=== PATIENT | female | born 1995 | race Hispanic/Latino ===

== ENCOUNTER 2018-06-20 21:16 | Emergency (ER) | payer SELFPAY ==
[2018-06-20 21:38] LABS: Bilirubin Negative (Negative); Blood, Urine Negative (Negative); Clarity CLOUDY (Clear); Glucose, Urine (Dipstick) Negative (Negative); Leukocyte Small (Negative); Nitrite Positive (Negative); Protein, Urine (Dipstick) Trace mg/dL (Neg-Trace); Specific Gravity, Urine 1.019 (1.002-1.036); pH, Urine 6.5 (5.0-9.0)
[2018-06-20 21:39] LABS: Pregnancy Test - Urine (BHCG) Negative (Negative); Pregu Control Background? CLEAR/WHITE (CLR/WHITE); Pregu Control Bar Appear? YES (CONTROL BAR); Specific Gravity 1.019 (1.002-1.036)
[2018-06-20 21:40] LABS: Bacteria/HPF 4+ HPF (None Seen); Pathc Cast-AUWi Flag 1.74 (0-2.49); WBC/HPF 21-50 HPF (0-3)
[2018-06-20 21:41] LABS: Hyaline Casts/LPF 0-3 HYALINE CAST LPF (0-3 Hyaline)
[2018-06-20 21:44] LABS: Hemoglobin 11.6 g/dL (12.0-16.0); Mean Corpuscular HGB CONC 31.5 g/dL (32.0-36.0); Mean Corpuscular Hemoglobin 23.7 pg (27.0-31.0); Mean Corpuscular Volume 75.3 fL (78.0-98.0); Mean Platelet Volume 7.4 fL (7.4-10.4); Platelet Count 285 thou/uL (130-400); RBC Distribution Width 14.7 % (11.5-14.5); Red Blood Cell (RBC) Count 4.88 mill/uL (4.20-5.40); White Blood Cell (WBC) Count 7.9 thou/uL (4.8-10.8)
[2018-06-20 22:04] LABS: ALT (SGPT) 53 U/L (8-55); AST (SGOT) 49 U/L (5-34); Albumin 3.9 g/dL (3.5-5.0); Alkaline Phosphatase 104 U/L (40-150); Anion Gap 13 mmol/L (10-20); BUN (Urea Nitrogen) 6 mg/dL (7.0-18.7); Bilirubin, Total 0.5 mg/dL (0.2-1.2); Calc. Creatinine Clearance 0 mL/min (70-130); Calcium 8.6 mg/dL (7.8-10.44); Carbon Dioxide 24 mmol/L (22-29); Chloride 104 mmol/L (98-107); Estimated GFR-MDRD 81; Globulin 3.3 g/dL (2.4-3.5); Glucose 111 mg/dL (70-105); Lipase 27 U/L (8-78); Potassium 3.9 mmol/L (3.5-5.1); Protein, Total 7.2 g/dL (6.0-8.3); Sodium 137 mmol/L (136-145)
[2018-06-20 22:06] LABS: Band 15 % (5-11); Lymphocytes 33 % (21-51); MDiff Complete? YES; Monocytes 7 % (0-10); Neutrophil 45 % (42-75)
[2018-06-20] MEDS ORDERED: Ibuprofen 200 MG TAB ONE (22:42)
[2018-06-20] MEDS ORDERED: Ondansetron PF 4 MG/2 ML Vial ONE (22:42)
[2018-06-20] MEDS ORDERED: cefTRIAXone\\ROCEPHIN 1 GM VIAL ONE ×2 (23:37→23:38)
== END 2018-06-21 00:30 | disposition home or self-care (01) ==
LOC: ERS 21:16
DX: N12 Tubulo-interstitial nephritis, not specified as acute or chronic (principal); F41.9 Anxiety disorder, unspecified; F17.210 Nicotine dependence, cigarettes, uncomplicated
CPT/HCPCS: 36415; 80053; 81003; 81015; 81025; 83690; 85025; 87077; 87086; 87186; 96361; 96365; 96375; J0696; J2405

== ENCOUNTER 2018-08-01 16:45 | Emergency (ER) | payer SELFPAY ==
--- NOTE | 2018-08-01 17:29 | RAD ---
LEFT RING FINGER THREE VIEWS: 08/01/2018 HISTORY: Injury. Trauma. Pain. COMPARISON: None. FINDINGS: No displaced fracture or evidence of dislocation noted. IMPRESSION: No acute findings. POS: DIPTI
== END 2018-08-01 18:54 | disposition home or self-care (01) ==
LOC: ERS 16:45
DX: S63.615A Unspecified sprain of left ring finger, initial encounter (principal); F41.9 Anxiety disorder, unspecified; F17.210 Nicotine dependence, cigarettes, uncomplicated; W19.XXXA Unspecified fall, initial encounter

== ENCOUNTER 2019-05-13 00:57 | Day surgery (SDC) | payer OTHER ==
[2019-05-13 01:31] VITALS: BP 113/72; TEMP 98.7; BMI 44.9
--- NOTE | 2019-05-13 02:04 | PDOC.FPROB ---
FMR OB H&P: HPI - History of Present Illness Chief Complaint: Abdominal pain History of Present Illness: Patient is a 24 yo female who presents to L&D triage with complaint of abdominal pain. She states that at approx. 1330 on 05/12/19 her niece (weight about 30 pounds) jumped on top of her and "knee'ed" her in the upper mid abdomen. Patient instantly felt a sharp pain which then improved after a short period of time. She last felt baby move around 1400 that day. She then took her children to a [facility] and walked around most of the afternoon, returning home around 12AM. Around that time she started to have increasing abdominal pain in the same area where her niece landed on her abdomen and radiating down her abdomen. She points to a location in mid-abdomen above the umbilicus when asks where pain is. Patient denies any loss of fluid or vaginal bleeding. She states she only had 1 glass of water in last 12 hours. She was somewhat dizzy on the drive to the hospital today. Primary Care Physician: Dr. Mckenzie FMR OB H&P: Current - Care : 3 Para: 2 Gestational age: 20.0 weeks Due date: 09/30/2019 Course/Complications: Anemia, currently taking Iron replacement therapy Last U/S on 05/03/19, was told had normal results Next appointment with Dr. Mckenzie on 05/28/19. FMR OB H&P: History - Past Medical History PMH: Anemia - OB History OB History: 2 prior vaginal deliveries, no complications at delivery 2nd occurred while patient had IUD in place, IUD was removed before delivery - Social History Social History: Denies tobacco use. FMR OB H&P: Medications - Current Home Medications: Medication Instructions Recorded Confirmed Type Vitamin 1 tab PO DAILY 05/13/19 05/13/19 History Allergies/Adverse Reactions: Allergies Allergy/AdvReac Type Severity Reaction Status Date / Time No Known Allergies Allergy Verified 05/13/19 02:08 FMR OB H&P: ROS - Review of Systems General: denies: fever/chills, weight/appetite/sleep changes, fatigue Eyes: denies: vision changes ENT: denies: nasal congestion Cardiovascular: denies: chest pain Respiratory: denies: cough, congestion Gastrointestinal: reports: abdominal pain. denies: indigestion, bloating, cramping, nausea, vomiting, diarrhea Genitourinary (Female): denies: dysuria, vaginal discharge, vaginal pain, vaginal bleeding, contractions, vaginal pressure Musculoskeletal: denies: pain Neurologic: denies: weakness, headache Integumentary: denies: itching, rash FMR OB H&P: Vital Signs - Maternal Vital signs: Vital Signs - First Documented Temp Pulse Resp BP Pulse Ox 98.7 F 80 20 113/72 98 05/13/19 01:26 05/13/19 01:26 05/13/19 01:26 05/13/19 01:26 05/13/19 01:26 - Heart Tones Baseline: 140 FMR OB H&P: Physical Exam - Physical Exam General: NAD, awake, alert and oriented HEENT: normocephalic and atraumatic, EOMI, MMM, conjunctiva clear, grossly normal vision, grossly normal hearing Neck: supple, FROM Heart: RRR, normal S1/S2, no murmurs/rubs/gallops, pulses present, no edema General: CTAB, no respiratory distress, no rales/rhonchi, no wheezing Abdomen: soft, gravid, non-tender, bowel sound present, no masses Musculoskeletal: pulses present, FROM in all four extremities Neurological: no focal deficit Skin: no rash, good tugor Lymphatic: no unusual bruising or bleeding Psychiatric: intact recent and remote memory, normal mood and affect FMR OB H&P: A/P - Problem List (1) Second trimester Status: Acute Code(s): Z34.92 - ENCNTR FOR SUPRVSN OF NORMAL PREG, UNSP, SECOND TRIMESTER (2) Abdominal pain during intrauterine Status: Acute Code(s): O26.899 - OTH RELATED CONDITIONS, UNSPECIFIED TRIMESTER; R10.9 - UNSPECIFIED ABDOMINAL PAIN Disposition: 24 yo female at 20.0 weeks EGA presents with abdominal pain: #Abdominal Pain -initial abdominal insult about 12 hours prior to triage -provide patient with PO hydration -due to location of pain and injury site above umbilicus and location of fundus at/slightly below umbilicus have low suspicion for complications - heart tones in 140s,which is reassuring Dispo: Stable, provide patient with PO hydration and repeat FHT. Plan to recheck in 1 hour and anticipate discharge home. ADDENDUM: Patient states that abdominal pain not has sharp after PO hydration. Given ER return precautions if pain suddenly worsens, if she has LOF or vaginal bleeding. Encouraged to make follow up appt next week with Dr. Mckenzie and keep follow up appointment with Dr. Mckenzie on May 28. Discussion: Date/Time: 05/13/19 0156 This H&P was discussed with Dr. Hernandez and Dr. Matthew who agree with the above documentation and plan. Addendum - Attending - Attending Attestation Date/Time: 05/13/19 7733 I personally evaluated the patient and discussed the management with Dr. Blunt and Alondra. I agree with the History, Examination, Assessment and Plan documented above.
[2019-05-13] MEDS ORDERED: hydrALAZINE 20 MG/ML VIAL SLOW IVP PRN (02:29)
== END 2019-05-13 02:37 | disposition home or self-care (01) ==
LOC: L&D/OP 00:57
PROVIDERS: ATTEND Obstetrics & Gynecology
DX: O99.89 Other specified diseases and conditions complicating pregnancy, childbirth and the puerperium (principal); R10.9 Unspecified abdominal pain; O99.012 Anemia complicating pregnancy, second trimester; D64.9 Anemia, unspecified; Z3A.20 20 weeks gestation of pregnancy

== ENCOUNTER 2019-09-25 05:30 | Inpatient (IN) | payer OTHER ==
--- NOTE | 2019-09-24 22:59 | PDOC.LDHP ---
Labor and Delivery H&P HPI: 24 y/o at 39 and 2/7 weeks for term induction of labor. Current gestational age (weeks): 39 Due date: 09/30/19 Grav: 3 Para: 2 Current complications: other (Obesity, Anemia, Depression) Abnormal US findings: No Current medications: pre-melissa vitamins Allergies/Adverse Reactions: Allergies Allergy/AdvReac Type Severity Reaction Status Date / Time No Known Allergies Allergy Verified 05/13/19 02:08 Social history: none, other - Physical Exam Vital signs reviewed and normal: yes General: NAD, resting Heart: RRR Lungs: CTAB Abdomen: gravid Extremeties: no edema - Assessment L&D Assessment: elective induction at term - Plan Plan: admit to L&D, cervical ripening
[~2019-09-25 05:30] MED LIST: Acetaminophen 500 MG TAB PO PRN; Butorphanol Tartrate 1 MG/ML VIAL SLOW IVP PRN; Carboprost 250 MCG/ML AMP IM PRN; Diphenoxylate HCl/Atropine Tablet PO PRN; Docusate 100 MG CAP PO PRN; HYDROcodone/Acetaminophen 5/325 mg Tablet PO PRN; Ibuprofen 800 MG TAB PO PRN; Lidocaine 1% (PF) 30 ML VIAL SC PRN; Methylergonovine 0.2 MG/ML VIAL IM PRN; Misoprostol 200 MCG TAB PR PRN; NS w/ Oxytocin 10 units 500 ML IV SCH; Ondansetron PF 4 MG/2 ML Vial IVP PRN; Promethazine HCl 25 MG/ML VIAL IM PRN; hydrALAZINE 20 MG/ML VIAL SLOW IVP PRN
[2019-09-25 06:28] VITALS: BMI 37.8
[2019-09-25] MEDS: Lactated Ringer's 1,000 ML IV SCH ×3 (06:38→15:38)
[2019-09-25] MEDS ORDERED: FLU VACC QS2019-20(6MOS UP)/PF 60 MCG/0.5 ML SYRINGE IM ONE (06:45)
[2019-09-25 06:53] LABS: Hemoglobin 8.2 g/dL (12.0-16.0); Mean Corpuscular HGB CONC 31.4 g/dL (32.0-36.0); Mean Corpuscular Hemoglobin 20.1 pg (27.0-31.0); Mean Corpuscular Volume 64.1 fL (78.0-98.0); Mean Platelet Volume 10.2 fL (7.4-10.4); Platelet Count 328 thou/uL (130-400); RBC Distribution Width 17.7 % (11.5-14.5); Red Blood Cell (RBC) Count 4.06 mill/uL (4.20-5.40); White Blood Cell (WBC) Count 6.5 thou/uL (4.8-10.8)
[2019-09-25] MEDS: NS w/ Oxytocin 10 units 500 ML IV SCH (07:22)
[2019-09-25 07:32] LABS: HBSAg Index 0.31 S/CO (0-0.99); Hep B Surf Ag Non-Reactive S/CO (NonReactive)
[2019-09-25 07:33] LABS: Syphilis Antibody Nonreactive (Nonreactive); Syphilis Antibody Index 0.04 S/CO (<1.00 Non-Reactive)
[2019-09-25] MEDS ORDERED: Bupivacaine PF 0.5% 30 ML VIAL ONE (09:31)
[2019-09-25] MEDS ORDERED: Bupivacaine 0.25% HCL 30 ML VIAL ONE (09:31)
[2019-09-25] MEDS ORDERED: Lidocaine 1% (PF) 30 ML VIAL ONE (12:35)
[2019-09-25] MEDS ORDERED: NS / Oxytocin 40 units/1000ml 1,000 ML ONE (12:35)
[2019-09-25] MEDS ORDERED: Fentanyl 4 mcg/Bup 0.1% Cadd 100 ML ONE ×2 (13:14→20:52)
[2019-09-25] MEDS ORDERED: EPHEDRINE 25 MG/5 ML SYRINGE SLOW IVP PRN (14:25)
[2019-09-25] MEDS ORDERED: Acetaminophen 325 MG TAB PO PRN (14:25)
[2019-09-25] MEDS ORDERED: Lactated Ringer's 500 ML IV PRN (14:25)
[2019-09-25] MEDS ORDERED: Promethazine HCl 25 MG/ML VIAL IM PRN (14:25)
[2019-09-25] MEDS ORDERED: diphenhydrAMINE 50 MG/ML VIAL IVP PRN (14:25)
[2019-09-25] MEDS ORDERED: Ondansetron PF 4 MG/2 ML Vial IVP PRN (14:25)
[2019-09-25] MEDS ORDERED: Naloxone HCl 0.4 mg/ml Vial IVP PRN ×2 (14:25)
[2019-09-25] MEDS ORDERED: Communication Order-Pharmacy FS SCH (14:30)
[2019-09-25] MEDS ORDERED: Fentanyl 4 mcg/Bupivacaine 0.1% Cassette 100 ML EPIDURAL SCH (14:30)
[2019-09-25] MEDS: NS / Oxytocin 40 units/1000ml 1,000 ML IV PRN ×2 (21:10→23:12)
[2019-09-26] MEDS ORDERED: Promethazine HCl 25 MG/ML VIAL IM PRN (00:40)
[2019-09-26] MEDS ORDERED: Bisacodyl 10 MG SUPP PR PRN (00:40)
[2019-09-26] MEDS ORDERED: Zolpidem Tartrate 5 MG TAB PO PRN (00:40)
[2019-09-26] MEDS ORDERED: hydrALAZINE 20 MG/ML VIAL SLOW IVP PRN (00:40)
[2019-09-26] MEDS ORDERED: Misoprostol 200 MCG TAB VAG PRN (00:40)
[2019-09-26] MEDS ORDERED: NS / Oxytocin 40 units/1000ml 1,000 ML IV SCH (00:40)
[2019-09-26] MEDS ORDERED: diphenhydrAMINE 25 MG CAP PO PRN (00:40)
[2019-09-26] MEDS ORDERED: Lanolin Ointment 7 GM TUBE TOP PRN (00:40)
[2019-09-26] MEDS ORDERED: Preparation H Ointment 57 gram tube RC PRN (00:40)
[2019-09-26] MEDS ORDERED: Ondansetron PF 4 MG/2 ML Vial IVP PRN (00:40)
[2019-09-26] MEDS ORDERED: Methylergonovine 0.2 MG/ML VIAL IM PRN (00:40)
[2019-09-26] MEDS ORDERED: Milk Of Magnesia 30 ML UDCUP PO PRN (00:40)
[2019-09-26] MEDS ORDERED: Benzocaine-Menthol 82.5 ML CAN TOP PRN (00:40)
[2019-09-26] MEDS: HYDROcodone/Acetaminophen 5/325 mg Tablet PO PRN ×5 (02:09→21:30)
[2019-09-26 05:57] LABS: Hemoglobin 6.6 g/dL (12.0-16.0); Mean Corpuscular HGB CONC 31.3 g/dL (32.0-36.0); Mean Corpuscular Hemoglobin 20.4 pg (27.0-31.0); Mean Platelet Volume 9.9 fL (7.4-10.4); Platelet Count 228 thou/uL (130-400); RBC Distribution Width 17.5 % (11.5-14.5); Red Blood Cell (RBC) Count 3.26 mill/uL (4.20-5.40); White Blood Cell (WBC) Count 8.8 thou/uL (4.8-10.8)
[2019-09-26] MEDS: Ibuprofen 800 MG TAB PO SCH ×3 (06:06→21:31)
[2019-09-26] MEDS: NS w/ Oxytocin 10 units 500 ML IV SCH (07:30)
[2019-09-26] MEDS: Lactated Ringer's 1,000 ML IV SCH (07:30)
[2019-09-26] MEDS: Docusate Calcium (SURFAK) 240 MG CAP PO SCH ×2 (08:42→21:31)
[2019-09-26] MEDS: Ferrous Sulfate 325 MG TAB PO SCH ×2 (08:42→17:46)
[2019-09-26] MEDS: Prenatal Vitamin 1 TAB PO SCH (08:42)
[2019-09-26] MEDS ORDERED: Varicella virus, LIVE 0.5 ML VIAL SC ONE (09:00)
[2019-09-26] MEDS ORDERED: Adacel (T-DAP) 0.5 ML SYRINGE IM ONE (09:00)
[2019-09-26] MEDS ORDERED: Measles/Mumps/Rubella 10 MCG/0.5 ML VIAL SC ONE (09:00)
--- NOTE | 2019-09-26 18:10 | PDOC.PP ---
Post Progress Note Post Day #: 1 PO intake tolerated: yes Flatus: yes Ambulation: yes Vital Signs (12 hours) Temp Pulse Resp BP Pulse Ox 09/26/19 16:48 98.8 F 67 16 127/84 96 09/26/19 12:06 97.6 F 65 20 119/78 09/26/19 08:00 98.0 F 67 18 134/82 99 Weight Weight 220 lb - Physical Examination General: NAD Cardiovascular: no m/r/g, RRR Respiratory: clear to auscultation bilaterally, non-labored breathing Abdominal: + bowel sounds, lochia, no distention, appropriately TTP Extremities: negative homans (B) Neurological: no gross focal deficits (Patient has chronic anemia, now with decrease Hb/Hct after some typical lochia. Will recheck blood count now, and decide on blood transfusion from there.) Psychiatric: A&Ox3, normal affect Result Diagrams: 09/26/19 05:48 Additional Labs: Post Labs Blood Type B POSITIVE 09/25/19 06:45 Hep Bs Antigen Non-Reactive S/CO (NonReactive) 09/25/19 06:45
[2019-09-26 18:26] LABS: #Basophils 0.1 thou/uL (0.0-0.2); #Eosinphils 0.1 thou/uL (0.0-0.7); #Lymphocytes 2.9 thou/uL (1.20-3.40); #Monocytes 0.4 thou/uL (0.11-0.59); #Neutrophils 5.1 thou/uL (1.40-6.50); %Basophils 0.8 % (0.0-1.0); %Eosinophils 1.3 % (0.0-10.0); %Lymphocytes 33.5 % (21.0-51.0); %Monocytes 4.9 % (0.0-10.0); %Neutrophils 59.6 % (42.0-75.0); Hemoglobin 7.1 g/dL (12.0-16.0); Mean Corpuscular HGB CONC 30.5 g/dL (32.0-36.0); Mean Corpuscular Volume 65.5 fL (78.0-98.0); Mean Platelet Volume 9.8 fL (7.4-10.4); Platelet Count 283 thou/uL (130-400); RBC Distribution Width 17.7 % (11.5-14.5); Red Blood Cell (RBC) Count 3.57 mill/uL (4.20-5.40); White Blood Cell (WBC) Count 8.5 thou/uL (4.8-10.8)
--- NOTE | 2019-09-27 01:08 | DN ---
DATE OF PROCEDURE: 09/25/2019 TIME: 2106 Central Standard Time. PREOPERATIVE DIAGNOSIS: Intrauterine at 39 weeks and 2 days with an elective term induction of labor. POSTOPERATIVE DIAGNOSIS: Intrauterine at 39 weeks and 2 days with an elective term induction of labor. PROCEDURE PERFORMED: Spontaneous vaginal delivery over intact perineum. FINDINGS: Viable male , weighing 3345 g or 7 pounds 6 ounces. Apgars of 8 and 9. ESTIMATED BLOOD LOSS: 250 mL. COMPLICATIONS: None. PROCEDURE IN DETAIL: The patient presented to [facility] where she was admitted to the labor and delivery service. The patient underwent a normal and uneventful labor with normal cervical dilatation until she was found to be completely dilated. She was then allowed to push and was able to bring the baby down and delivered the baby in a vertex presentation without difficulties. Once the head delivered in occiput anterior position, the shoulders followed spontaneously along with the rest of the baby's body. Once out the baby's mouth and nose were bulb suctioned. The cord was clamped and cut and baby was handed to waiting attendants. Cord blood was collected. Gentle fundal massage was performed and the placenta delivered intact without problems. Hemostasis was assured after placing Cytotec 800mcg per rectum. The nurse assisted in placing this medication. Quantitative blood loss was calculated. Inspection of the cervix, vaginal vault, and perineum did not reveal any lacerations needing suturing. Once again, hemostasis was within normal limits and the patient was allowed to recover in the labor and delivery room. Baby went to nursery. Job ID: [id number] [facility] CENTERHedy
[2019-09-27] MEDS: HYDROcodone/Acetaminophen 5/325 mg Tablet PO PRN ×3 (02:13→13:42)
[2019-09-27] MEDS: Ibuprofen 800 MG TAB PO SCH ×3 (06:29→15:20)
[2019-09-27] MEDS: Prenatal Vitamin 1 TAB PO SCH (08:29)
[2019-09-27] MEDS: Docusate Calcium (SURFAK) 240 MG CAP PO SCH (08:29)
[2019-09-27] MEDS: Ferrous Sulfate 325 MG TAB PO SCH (08:29)
[2019-09-27] MEDS ORDERED: FLU VACC QS2019-20(6MOS UP)/PF 60 MCG/0.5 ML SYRINGE IM ONE (09:00)
[2019-09-27 09:44] VITALS: BP 122/76; TEMP 97.9
--- NOTE | 2019-09-30 02:42 | PQF ---
Felicita Winter DAVID MD [id number] CLINICAL DOCUMENTATION CLARIFICATION FORM: POST DISCHARGE Addendum to original discharge summary date: ____ Late entry note date: __ DATE:09/30/2019 ATTN: Keyshawn Rai Please exercise your independent, professional judgment in responding to the clarification form. Clinical indicators are provided on the bottom of this form for your review Please check appropriate box(s): [ ] Acute blood loss anemia [ ] Post-op anemia related to acute blood loss [ x] Chronic Anemia: [ ] Blood loss [ ] Hemolytic [x ] Simple [ ] Due to Vitamin B12 Deficiency [ ] Other [ ] Other diagnosis [ ] Unable to determine In addition, please specify: Present on Admission (POA): [ x ] Yes [ ] No [ ] Unable to determine For continuity of documentation, please document condition throughout progress notes and discharge summary. Thank You. CLINICAL INDICATORS - SIGNS / SYMPTOMS / LABS Laboratory 09/25 -RBC 4.03, Hgb 8.2, Hct 26.0 Laboratory 09/26 -RBC 3.26; 3.57, Hgb 6.6; 7.1, Hct 21.2; 23.4 Vital signs 09/26 BP120/70, Pulse 74, Resp 20, Temp 98.3 L&D summary 09/25 EBL: 250ml PN p1 09/26 Dr Mckenzie Pt has chronic anemia, now with decrease hb/ hct after some typical lochia Discharge summary 09/27 Chronic Anemia with further Acute post- Anemia RISK FACTORS Operative report p1 09/25 IUP at 39 weeks and 2 days Operative report p1 09/25 s/p Discharge summary Anemia TREATMENTS: SEP 29 Ferrous Sulfate 325mg SEP 29 IVF 1L PN p1 09/26 Ordered blood count check, blood transfusion PRN (This form is maintained as a part of the permanent medical record) 2014 [employer]. All Rights Reserved [email or web address]
== END 2019-09-27 16:15 | disposition home or self-care (01) | DRG 807 ==
LOC: L&D 06:02 → 3SW 09-26 00:55
PROVIDERS: ADMIT Obstetrics & Gynecology; ATTEND Obstetrics & Gynecology
PROC: 10E0XZZ Delivery of Products of Conception, External Approach (ICD-10-PCS; principal; 2019-09-25)
PROC: 10907ZC Drainage of Amniotic Fluid, Therapeutic from Products of Conception, Via Natural or Artificial Opening (ICD-10-PCS; 2019-09-25)
PROC: 3E0P7VZ Introduction of Hormone into Female Reproductive, Via Natural or Artificial Opening (ICD-10-PCS; 2019-09-25)
PROC: 3E033VJ Introduction of Other Hormone into Peripheral Vein, Percutaneous Approach (ICD-10-PCS; 2019-09-25)
PROC: 3E02340 Introduction of Influenza Vaccine into Muscle, Percutaneous Approach (ICD-10-PCS; 2019-09-27)
DX: O99.013 Anemia complicating pregnancy, third trimester (principal); Z37.0 Single live birth; Z3A.39 39 weeks gestation of pregnancy; O99.214 Obesity complicating childbirth; E66.9 Obesity, unspecified; D53.9 Nutritional anemia, unspecified; Z23 Encounter for immunization
CPT/HCPCS: 36415; 51702; 76815; 85027; 86780; 86850; 86900; 86901; 87340; 90471; 90686; 90715; G0008; J2001; J2590; S0020

== ENCOUNTER 2020-06-13 21:21 | Emergency (ER) | payer OTHER ==
[2020-06-13 22:09] LABS: #Eosinphils 0.1 thou/uL (0.0-0.7); #Lymphocytes 2.8 thou/uL (1.20-3.40); #Monocytes 0.5 thou/uL (0.11-0.59); #Neutrophils 7.1 thou/uL (1.40-6.50); %Basophils 0.4 % (0.0-1.0); %Eosinophils 0.8 % (0.0-10.0); %Lymphocytes 26.4 % (21.0-51.0); %Monocytes 4.9 % (0.0-10.0); %Neutrophils 67.5 % (42.0-75.0); Hemoglobin 11.3 g/dL (12.0-16.0); Mean Corpuscular HGB CONC 33.3 g/dL (32.0-36.0); Mean Corpuscular Hemoglobin 25.2 pg (27.0-31.0); Mean Corpuscular Volume 75.6 fL (78.0-98.0); Mean Platelet Volume 8.9 fL (7.4-10.4); Platelet Count 325 thou/uL (130-400); Red Blood Cell (RBC) Count 4.51 mill/uL (4.20-5.40); White Blood Cell (WBC) Count 10.5 thou/uL (4.8-10.8)
[2020-06-13 22:29] LABS: Bacteria/HPF 3+ HPF (None Seen); Bilirubin Negative (Negative); Blood, Urine Negative (Negative); Clarity Turbid (Clear); Glucose, Urine (Dipstick) Normal (Negative); Ketone, Urine Negative (Negative); Leukocyte 25 Leu/uL (Negative); Mucous/LPF Rare LPF (<2+); Nitrite Negative (Negative); Protein, Urine (Dipstick) Negative (Neg-Trace); RBC/HPF 0-3 HPF (0-3); Urobilinogen Normal mg/dL (Less than 2); WBC/HPF 0-3 HPF (0-3); pH, Urine 6.5 (5.0-9.0)
[2020-06-13 22:32] LABS: Acetaminophen Less than 6.0 mcg/mL (10.0-30.0); Alcohol Less than 10 mg/dL (Less than 10); CK (CPK) 116 U/L (29-168); Magnesium 1.8 mg/dL (1.6-2.6); Salicylate Less than 8.0 mg/dL (15.0-30.0)
[2020-06-13 22:34] LABS: ALT (SGPT) 12 U/L (8-55); AST (SGOT) 14 U/L (5-34); Albumin 3.7 g/dL (3.5-5.0); Alcohol Less than 10 mg/dL (Less than 10); Alkaline Phosphatase 78 U/L (40-110); Anion Gap 14 mmol/L (10-20); BUN (Urea Nitrogen) 11 mg/dL (7.0-18.7); Bilirubin, Total 0.2 mg/dL (0.2-1.2); Calc. Creatinine Clearance 0 mL/min (70-130); Calcium 8.9 mg/dL (7.8-10.44); Carbon Dioxide 21 mmol/L (22-29); Chloride 105 mmol/L (98-107); Globulin 3.6 g/dL (2.4-3.5); Glucose 83 mg/dL (70-105); Potassium 3.7 mmol/L (3.5-5.1); Protein, Total 7.3 g/dL (6.0-8.3); Sodium 136 mmol/L (136-145)
[2020-06-13 22:35] LABS: Amphetamine Not Detected (NotDetected); Barbiturates Screen Not Detected (NotDetected); Benzodiazepine Screen Not Detected (NotDetected); Cocaine Metabolite Screen Not Detected (NotDetected); Medtox Control Line Valid? VALID (VALID); Medtox Reader # READER 1; Methadone Not Detected (NotDetected); Methamphetamine Not Detected (NotDetected); Opiate Screen Not Detected (NotDetected); Oxycodone Screen Not Detected (NotDetected); Phencyclidine (PCP) Not Detected (NotDetected); THC/Cannabinoid Screen Not Detected (NotDetected); Tricyclic Screen Not Detected (NotDetected)
--- NOTE | 2020-06-13 22:57 | ULT ---
EXAM: OB ultrasound COMPARISON: None HISTORY: female. Evaluate size and dates. Drug overdose TECHNIQUE: Multiplanar grayscale and color Doppler images were obtained in a transabdominal ult rasound. FINDINGS: There is a single live intrauterine with heart rate of 144 bpm. A limited s urvey was performed which is unremarkable. The head, intracranial structures, heart, stomach, kidneys, spine, and extremities were evaluated and were unremarkable. Estimated weight is 635 g. Average age of the fetus based off today's examination is 24 weeks 1 day. BPD 5.93 cm -- 24 weeks 2 days HC 22.65 cm -- 24 weeks 5 days AC 19.78 cm -- 24 weeks 3 days FL 3.97 cm -- 22 weeks 6 days The placenta is anterior in location without focal abnormality. SUE is 18.9 cm which is normal. The cervix is normal in length. There is no evidence of placenta previa. The adnexa structures of the mother were unable to be assessed given the gestational age. IMPRESSION: Single live intrauterine with estimated age of 24 weeks 1 day.
[2020-06-14] MEDS ORDERED: Acetaminophen 500 MG TAB ONE (00:45)
--- NOTE | 2020-06-20 15:28 | EKG ---
Test Reason : Blood Pressure : / mmHG Vent. Rate : 092 BPM Atrial Rate : 092 BPM P-R Int : 118 ms QRS Dur : 076 ms QT Int : 336 ms P-R-T Axes : 059 014 004 degrees QTc Int : 415 ms Normal sinus rhythm Normal ECG Confirmed by MARY JACKSON, SUPRIYA Gusman ([id number]), newspaper copy editor MIA OVERTON ([id number]) on 06/20/2020 3:27:54 PM Referred By: Confirmed By:SUPRIYA HERNANDEZ MD
== END 2020-06-14 05:27 | disposition home or self-care (01) ==
LOC: ERS 21:21
DX: O9A.212 Injury, poisoning and certain other consequences of external causes complicating pregnancy, second trimester (principal); T43.222A Poisoning by selective serotonin reuptake inhibitors, intentional self-harm, initial encounter; O99.342 Other mental disorders complicating pregnancy, second trimester; F41.9 Anxiety disorder, unspecified; F32.9 Major depressive disorder, single episode, unspecified; Z87.891 Personal history of nicotine dependence; Z3A.24 24 weeks gestation of pregnancy; Z79.899 Other long term (current) drug therapy
CPT/HCPCS: 36415; 76815; 80053; 80306; 80307; 81003; 81015; 82550; 83735; 84443; 85025; 93005

== ENCOUNTER 2020-10-27 12:15 | Inpatient (IN) | payer OTHER ==
[2020-10-27] MEDS ORDERED: Acetaminophen 500 MG TAB ONE (12:31)
[2020-10-27] MEDS ORDERED: Dexamethasone 10 MG/ML VIAL ONE (12:31)
[2020-10-27 13:19] LABS: Hemoglobin 9.4 g/dL (12.0-16.0); Mean Corpuscular HGB CONC 30.5 g/dL (32.0-36.0); Mean Corpuscular Hemoglobin 22.6 pg (27.0-31.0); Mean Corpuscular Volume 73.9 fL (78.0-98.0); Mean Platelet Volume 8.1 fL (7.4-10.4); Platelet Count 326 thou/uL (130-400); RBC Distribution Width 18.6 % (11.5-14.5); Red Blood Cell (RBC) Count 4.16 mill/uL (4.20-5.40); White Blood Cell (WBC) Count 5.8 thou/uL (4.8-10.8)
[2020-10-27 13:20] LABS: #Lymphocytes 0.7 thou/uL (1.20-3.40); #Monocytes 0.2 thou/uL (0.11-0.59); #Neutrophils 4.9 thou/uL (1.40-6.50); %Basophils 0.1 % (0.0-1.0); %Eosinophils 0.1 % (0.0-10.0); %Lymphocytes 12.3 % (21.0-51.0); %Monocytes 2.6 % (0.0-10.0); %Neutrophils 84.9 % (42.0-75.0)
[2020-10-27 13:35] LABS: BHCG - Serum Negative (NEGATIVE); Pregs Control Background? CLEAR/WHITE (CLR/WHITE); Pregs Control Bar Appear? YES (CONTROL BAR)
[2020-10-27 13:39] LABS: ALT (SGPT) 21 U/L (8-55); AST (SGOT) 28 U/L (5-34); Albumin 3.4 g/dL (3.5-5.0); Alkaline Phosphatase 108 U/L (40-110); Anion Gap 11 mmol/L (10-20); BUN (Urea Nitrogen) 6 mg/dL (7.0-18.7); Bilirubin, Total 0.3 mg/dL (0.2-1.2); Calc. Creatinine Clearance 0 mL/min (70-130); Calcium 7.7 mg/dL (7.8-10.44); Carbon Dioxide 23 mmol/L (22-29); Chloride 109 mmol/L (98-107); Glucose 123 mg/dL (70-105); Potassium 3.2 mmol/L (3.5-5.1); Protein, Total 6.4 g/dL (6.0-8.3); Sodium 140 mmol/L (136-145)
[2020-10-27 13:47] LABS: Anisocytosis SLIGHT = 6-15 cells (100X) (0-5/hpf); Hypochromia SLIGHT = 6-15 cells (100X) (0-5/hpf); MDiff Complete? YES; Microcytosis SLIGHT = 6-15 cells (100X) (0-5/hpf); Ovalocytes SLIGHT = 2-5 cells (100X) (0-1/hpf); Platelet Morphology Comment Appears Adequate; Polychromasia SLIGHT = 2-3 cells (100X) (0-2/hpf); Tear Drops SLIGHT = 2-5 cells (100X) (0-1/hpf)
[2020-10-27] MEDS ORDERED: Albuterol 200 PUFF (6.7GM INHALER) ONE (13:49)
[2020-10-27] MEDS ORDERED: Potassium Chloride 20 MEQ TAB ONE (13:50)
[2020-10-27] MEDS ORDERED: Ondansetron PF 4 MG/2 ML Vial IVP PRN (16:41)
[2020-10-27] MEDS ORDERED: Acetaminophen 650 MG Suppository PR PRN (16:41)
[2020-10-27] MEDS ORDERED: Ondansetron ODT 4 MG TAB PO PRN (16:41)
[2020-10-27] MEDS: hydrOXYzine Pamoate 25 mg Capsule PO PRN (20:43)
[2020-10-27] MEDS: Acetaminophen 325 MG TAB PO PRN (20:43)
[2020-10-28 06:04] LABS: #Lymphocytes 1.1 thou/uL (1.20-3.40); #Monocytes 0.3 thou/uL (0.11-0.59); #Neutrophils 6.3 thou/uL (1.40-6.50); %Basophils 0.1 % (0.0-1.0); %Lymphocytes 13.9 % (21.0-51.0); %Monocytes 4.3 % (0.0-10.0); %Neutrophils 81.6 % (42.0-75.0); Hemoglobin 9.3 g/dL (12.0-16.0); Mean Corpuscular HGB CONC 30.7 g/dL (32.0-36.0); Mean Corpuscular Volume 74.9 fL (78.0-98.0); Platelet Count 323 thou/uL (130-400); RBC Distribution Width 18.5 % (11.5-14.5); Red Blood Cell (RBC) Count 4.05 mill/uL (4.20-5.40); White Blood Cell (WBC) Count 7.7 thou/uL (4.8-10.8)
[2020-10-28 06:20] LABS: Anion Gap 12 mmol/L (10-20); BUN (Urea Nitrogen) 9 mg/dL (7.0-18.7); Calc. Creatinine Clearance 217 mL/min (70-130); Calcium 8.3 mg/dL (7.8-10.44); Carbon Dioxide 21 mmol/L (22-29); Chloride 111 mmol/L (98-107); Glucose 118 mg/dL (70-105); Potassium 4.6 mmol/L (3.5-5.1); Sodium 139 mmol/L (136-145)
[2020-10-28] MEDS: Acetaminophen 325 MG TAB PO PRN (06:32)
[2020-10-28] MEDS: Guaifenesin DM 100-10/5 ML UDCUP PO PRN (06:32)
[2020-10-28] MEDS: cefTRIAXone\\ROCEPHIN 1 GM in Sodium Chloride 0.9% 100 ML IVPB SCH (08:43)
[2020-10-28] MEDS: Enoxaparin Sodium 40 MG/0.4 ML SYRINGE SC SCH (08:44)
[2020-10-28] MEDS: Ascorbic Acid 500 mg Chewable Tablet PO SCH (08:44)
[2020-10-28] MEDS: Zinc Sulfate 220 MG CAP PO SCH (08:45)
[2020-10-28] MEDS: Dexamethasone 4 MG TAB PO SCH (08:45)
[2020-10-28] MEDS ORDERED: REMDESIVIR (EUA) 200 MG in Sodium Chloride 0.9% 250 ML 210 ML IV SCH (09:00)
[2020-10-28] MEDS: hydrOXYzine Pamoate 25 mg Capsule PO PRN (09:46)
[2020-10-29 05:40] LABS: #Monocytes 0.4 thou/uL (0.11-0.59); #Neutrophils 8.1 thou/uL (1.40-6.50); %Basophils 0.1 % (0.0-1.0); %Eosinophils 0.1 % (0.0-10.0); %Lymphocytes 10.6 % (21.0-51.0); %Monocytes 3.9 % (0.0-10.0); %Neutrophils 85.3 % (42.0-75.0); Mean Corpuscular HGB CONC 30.3 g/dL (32.0-36.0); Mean Corpuscular Hemoglobin 22.6 pg (27.0-31.0); Mean Corpuscular Volume 74.7 fL (78.0-98.0); Mean Platelet Volume 8.1 fL (7.4-10.4); Platelet Count 371 thou/uL (130-400); RBC Distribution Width 18.6 % (11.5-14.5); Red Blood Cell (RBC) Count 3.99 mill/uL (4.20-5.40); White Blood Cell (WBC) Count 9.5 thou/uL (4.8-10.8)
[2020-10-29 06:05] LABS: Anion Gap 11 mmol/L (10-20); BUN (Urea Nitrogen) 12 mg/dL (7.0-18.7); Calc. Creatinine Clearance 213 mL/min (70-130); Calcium 8.3 mg/dL (7.8-10.44); Carbon Dioxide 23 mmol/L (22-29); Chloride 112 mmol/L (98-107); Glucose 104 mg/dL (70-105); Potassium 4.3 mmol/L (3.5-5.1); Sodium 142 mmol/L (136-145)
[2020-10-29] MEDS: Enoxaparin Sodium 40 MG/0.4 ML SYRINGE SC SCH (08:37)
[2020-10-29] MEDS: cefTRIAXone\\ROCEPHIN 1 GM in Sodium Chloride 0.9% 100 ML IVPB SCH (08:37)
[2020-10-29] MEDS: Ascorbic Acid 500 mg Chewable Tablet PO SCH (08:38)
[2020-10-29] MEDS: Dexamethasone 4 MG TAB PO SCH (08:38)
[2020-10-29] MEDS: hydrOXYzine Pamoate 25 mg Capsule PO PRN ×2 (08:38→22:57)
[2020-10-29] MEDS: Zinc Sulfate 220 MG CAP PO SCH (08:39)
[2020-10-29] MEDS: Guaifenesin DM 100-10/5 ML UDCUP PO PRN (08:53)
[2020-10-29] MEDS: Acetaminophen 325 MG TAB PO PRN (08:53)
[2020-10-29] MEDS: REMDESIVIR (EUA) 100 MG in Sodium Chloride 0.9% 250 ML 230 ML IV SCH (10:53)
[2020-10-29] MEDS ORDERED: Ketorolac Tromethamine 30 MG/ML VIAL IVP PRN (12:01)
[2020-10-29] MEDS ORDERED: Benzonatate 100 MG CAP PO PRN (12:01)
[2020-10-29] MEDS ORDERED: Dexamethasone 4 mg/ml Vial SLOW IVP SCH (12:15)
[2020-10-29] MEDS: Pantoprazole 40 MG VIAL IVP SCH (20:28)
[2020-10-29] MEDS: Morphine 2 MG/ML VIAL SLOW IVP PRN (20:28)
[2020-10-30] MEDS: Guaifenesin DM 100-10/5 ML UDCUP PO PRN (06:10)
[2020-10-30 06:17] LABS: #Lymphocytes 1.4 thou/uL (1.20-3.40); #Monocytes 0.7 thou/uL (0.11-0.59); #Neutrophils 7.6 thou/uL (1.40-6.50); %Basophils 0.1 % (0.0-1.0); %Eosinophils 0.2 % (0.0-10.0); %Lymphocytes 14.6 % (21.0-51.0); %Neutrophils 78.1 % (42.0-75.0); Hemoglobin 9.3 g/dL (12.0-16.0); Mean Corpuscular HGB CONC 30.4 g/dL (32.0-36.0); Mean Corpuscular Hemoglobin 22.6 pg (27.0-31.0); Mean Corpuscular Volume 74.4 fL (78.0-98.0); Mean Platelet Volume 8.2 fL (7.4-10.4); Platelet Count 379 thou/uL (130-400); RBC Distribution Width 18.5 % (11.5-14.5); Red Blood Cell (RBC) Count 4.11 mill/uL (4.20-5.40); White Blood Cell (WBC) Count 9.7 thou/uL (4.8-10.8)
[2020-10-30 06:40] LABS: Iron 27 ug/dL (50-170); Iron Binding Capacity, Total 366 mcg/dL (265-497)
[2020-10-30 06:46] LABS: BUN (Urea Nitrogen) 13 mg/dL (7.0-18.7); Calc. Creatinine Clearance 227 mL/min (70-130); Calcium 8.3 mg/dL (7.8-10.44); Carbon Dioxide 24 mmol/L (22-29); Chloride 108 mmol/L (98-107); Glucose 101 mg/dL (70-105); Iron 27 ug/dL (50-170); Iron Binding Capacity, Total 374 mcg/dL (265-497); Potassium 4.2 mmol/L (3.5-5.1); Sodium 139 mmol/L (136-145)
[2020-10-30 06:48] LABS: Anion Gap 11 mmol/L (10-20)
[2020-10-30] MEDS: cefTRIAXone\\ROCEPHIN 1 GM in Sodium Chloride 0.9% 100 ML IVPB SCH (08:30)
[2020-10-30] MEDS: Ascorbic Acid 500 mg Chewable Tablet PO SCH (08:30)
[2020-10-30] MEDS: Enoxaparin Sodium 40 MG/0.4 ML SYRINGE SC SCH (08:31)
[2020-10-30] MEDS: Dexamethasone 4 mg/ml Vial SLOW IVP SCH (08:31)
[2020-10-30] MEDS: Pantoprazole 40 MG VIAL IVP SCH ×2 (08:31→20:49)
[2020-10-30] MEDS: Zinc Sulfate 220 MG CAP PO SCH (08:31)
[2020-10-30] MEDS: Morphine 2 MG/ML VIAL SLOW IVP PRN (08:34)
[2020-10-30] MEDS: hydrOXYzine Pamoate 25 mg Capsule PO PRN ×2 (08:56→21:28)
[2020-10-30] MEDS: REMDESIVIR (EUA) 100 MG in Sodium Chloride 0.9% 250 ML 230 ML IV SCH (09:22)
[2020-10-30] MEDS: Ferrous Sulfate 325 MG TAB PO SCH (16:27)
[2020-10-31 05:41] LABS: #Monocytes 0.8 thou/uL (0.11-0.59); #Neutrophils 7.2 thou/uL (1.40-6.50); %Basophils 0.4 % (0.0-1.0); %Eosinophils 0.2 % (0.0-10.0); %Lymphocytes 20.1 % (21.0-51.0); %Monocytes 8.3 % (0.0-10.0); Hemoglobin 10.1 g/dL (12.0-16.0); Mean Corpuscular Hemoglobin 23.7 pg (27.0-31.0); Mean Corpuscular Volume 74.2 fL (78.0-98.0); Mean Platelet Volume 7.9 fL (7.4-10.4); Platelet Count 471 thou/uL (130-400); RBC Distribution Width 18.5 % (11.5-14.5); Red Blood Cell (RBC) Count 4.26 mill/uL (4.20-5.40); White Blood Cell (WBC) Count 10.1 thou/uL (4.8-10.8)
[2020-10-31 05:59] LABS: Anion Gap 15 mmol/L (10-20); BUN (Urea Nitrogen) 14 mg/dL (7.0-18.7); Calc. Creatinine Clearance 207 mL/min (70-130); Calcium 8.5 mg/dL (7.8-10.44); Carbon Dioxide 23 mmol/L (22-29); Chloride 105 mmol/L (98-107); Glucose 87 mg/dL (70-105); Potassium 3.8 mmol/L (3.5-5.1); Sodium 139 mmol/L (136-145)
[2020-10-31] MEDS: cefTRIAXone\\ROCEPHIN 1 GM in Sodium Chloride 0.9% 100 ML IVPB SCH (08:03)
[2020-10-31] MEDS: Dexamethasone 4 mg/ml Vial SLOW IVP SCH (08:04)
[2020-10-31] MEDS: Ferrous Sulfate 325 MG TAB PO SCH ×2 (08:04→17:13)
[2020-10-31] MEDS: Ascorbic Acid 500 mg Chewable Tablet PO SCH (08:04)
[2020-10-31] MEDS: Pantoprazole 40 MG VIAL IVP SCH ×2 (08:05→20:28)
[2020-10-31] MEDS: Zinc Sulfate 220 MG CAP PO SCH (08:05)
[2020-10-31] MEDS: Enoxaparin Sodium 40 MG/0.4 ML SYRINGE SC SCH (08:05)
[2020-10-31] MEDS: Morphine 2 MG/ML VIAL SLOW IVP PRN (08:39)
[2020-10-31] MEDS ORDERED: Albuterol 200 PUFF (6.7GM INHALER) INH PRN (09:00)
[2020-10-31] MEDS: hydrOXYzine Pamoate 25 mg Capsule PO PRN (10:02)
[2020-10-31] MEDS: REMDESIVIR (EUA) 100 MG in Sodium Chloride 0.9% 250 ML 230 ML IV SCH (10:42)
[2020-11-01 05:46] LABS: #Lymphocytes 2.2 thou/uL (1.20-3.40); #Monocytes 0.9 thou/uL (0.11-0.59); #Neutrophils 5.9 thou/uL (1.40-6.50); %Basophils 0.2 % (0.0-1.0); %Eosinophils 0.3 % (0.0-10.0); %Lymphocytes 24.6 % (21.0-51.0); %Monocytes 9.7 % (0.0-10.0); %Neutrophils 65.2 % (42.0-75.0); Hemoglobin 10.6 g/dL (12.0-16.0); Mean Corpuscular Hemoglobin 23.1 pg (27.0-31.0); Mean Corpuscular Volume 74.5 fL (78.0-98.0); Mean Platelet Volume 7.6 fL (7.4-10.4); Platelet Count 505 thou/uL (130-400); RBC Distribution Width 18.8 % (11.5-14.5); Red Blood Cell (RBC) Count 4.58 mill/uL (4.20-5.40); White Blood Cell (WBC) Count 9.1 thou/uL (4.8-10.8)
[2020-11-01 06:09] LABS: Anion Gap 15 mmol/L (10-20); BUN (Urea Nitrogen) 19 mg/dL (7.0-18.7); Calc. Creatinine Clearance 198 mL/min (70-130); Calcium 8.2 mg/dL (7.8-10.44); Carbon Dioxide 24 mmol/L (22-29); Chloride 105 mmol/L (98-107); Glucose 79 mg/dL (70-105); Potassium 3.6 mmol/L (3.5-5.1); Sodium 140 mmol/L (136-145)
[2020-11-01] MEDS: Enoxaparin Sodium 40 MG/0.4 ML SYRINGE SC SCH (07:53)
[2020-11-01] MEDS: Dexamethasone 4 mg/ml Vial SLOW IVP SCH (07:53)
[2020-11-01] MEDS: Ascorbic Acid 500 mg Chewable Tablet PO SCH (07:54)
[2020-11-01] MEDS: Pantoprazole 40 MG VIAL IVP SCH ×2 (07:54→20:35)
[2020-11-01] MEDS: Zinc Sulfate 220 MG CAP PO SCH (07:55)
[2020-11-01] MEDS: Ferrous Sulfate 325 MG TAB PO SCH ×2 (07:55→16:46)
[2020-11-01] MEDS: cefTRIAXone\\ROCEPHIN 1 GM in Sodium Chloride 0.9% 100 ML IVPB SCH (07:58)
[2020-11-01] MEDS: REMDESIVIR (EUA) 100 MG in Sodium Chloride 0.9% 250 ML 230 ML IV SCH (10:55)
[2020-11-01] MEDS: Morphine 2 MG/ML VIAL SLOW IVP PRN ×2 (11:03→21:58)
[2020-11-02 06:07] LABS: #Eosinphils 0.1 thou/uL (0.0-0.7); #Lymphocytes 2.2 thou/uL (1.20-3.40); #Monocytes 0.7 thou/uL (0.11-0.59); #Neutrophils 5.6 thou/uL (1.40-6.50); %Basophils 0.1 % (0.0-1.0); %Eosinophils 0.8 % (0.0-10.0); %Lymphocytes 26.1 % (21.0-51.0); %Monocytes 8.2 % (0.0-10.0); %Neutrophils 64.8 % (42.0-75.0); Hemoglobin 10.5 g/dL (12.0-16.0); Mean Corpuscular Hemoglobin 23.7 pg (27.0-31.0); Mean Corpuscular Volume 74.2 fL (78.0-98.0); Mean Platelet Volume 7.7 fL (7.4-10.4); Platelet Count 507 thou/uL (130-400); RBC Distribution Width 19.2 % (11.5-14.5); Red Blood Cell (RBC) Count 4.41 mill/uL (4.20-5.40); White Blood Cell (WBC) Count 8.6 thou/uL (4.8-10.8)
[2020-11-02 06:26] LABS: Anion Gap 12 mmol/L (10-20); BUN (Urea Nitrogen) 19 mg/dL (7.0-18.7); Calc. Creatinine Clearance 190 mL/min (70-130); Carbon Dioxide 25 mmol/L (22-29); Chloride 106 mmol/L (98-107); Glucose 77 mg/dL (70-105); Potassium 3.4 mmol/L (3.5-5.1); Sodium 140 mmol/L (136-145)
[2020-11-02] MEDS: Ascorbic Acid 500 mg Chewable Tablet PO SCH (09:13)
[2020-11-02] MEDS: Doxycycline 100 MG CAP PO SCH ×2 (09:13→20:11)
[2020-11-02] MEDS: cefTRIAXone\\ROCEPHIN 1 GM in Sodium Chloride 0.9% 100 ML IVPB SCH (09:13)
[2020-11-02] MEDS: Zinc Sulfate 220 MG CAP PO SCH (09:13)
[2020-11-02] MEDS: Ferrous Sulfate 325 MG TAB PO SCH ×2 (09:13→16:35)
[2020-11-02] MEDS: Enoxaparin Sodium 40 MG/0.4 ML SYRINGE SC SCH (09:13)
[2020-11-02] MEDS: hydrOXYzine Pamoate 25 mg Capsule PO PRN (10:05)
[2020-11-02 22:08] LABS: SARS-CoV-2 IgG Ab Reactive (NonReactive)
[2020-11-03] MEDS ORDERED: Dexamethasone 4 MG TAB PO SCH (08:00)
[2020-11-03] MEDS: Doxycycline 100 MG CAP PO SCH (08:12)
[2020-11-03] MEDS: Ascorbic Acid 500 mg Chewable Tablet PO SCH (08:14)
[2020-11-03] MEDS: Ferrous Sulfate 325 MG TAB PO SCH (08:15)
[2020-11-03] MEDS: Zinc Sulfate 220 MG CAP PO SCH (08:15)
[2020-11-03] MEDS: Enoxaparin Sodium 40 MG/0.4 ML SYRINGE SC SCH (08:16)
[2020-11-03 15:01] VITALS: BP 116/79; TEMP 97.9
== END 2020-11-03 15:45 | disposition home or self-care (01) | DRG 776 ==
LOC: ERS 12:15 → T4-A 16:26 → OBSVTOIN 10-28 17:35
PROVIDERS: ADMIT Internal Medicine; ATTEND Internal Medicine
PROC: XW033E5 Introduction of Remdesivir Anti-infective into Peripheral Vein, Percutaneous Approach, New Technology Group 5 (ICD-10-PCS; principal; 2020-10-27)
PROC: 8E0ZXY6 Isolation (ICD-10-PCS; 2020-10-27)
DX: O98.53 Other viral diseases complicating the puerperium (principal); U07.1 COVID-19; J12.82 Pneumonia due to coronavirus disease 2019; J96.01 Acute respiratory failure with hypoxia; O99.53 Diseases of the respiratory system complicating the puerperium; O99.345 Other mental disorders complicating the puerperium; F53.0 Postpartum depression; E87.6 Hypokalemia; F41.9 Anxiety disorder, unspecified; O90.81 Anemia of the puerperium; D50.9 Iron deficiency anemia, unspecified; O99.893 Other specified diseases and conditions complicating puerperium; R00.1 Bradycardia, unspecified; Z88.1 Allergy status to other antibiotic agents; Z79.899 Other long term (current) drug therapy
CPT/HCPCS: 36415; 71045; 71275; 80048; 80053; 82728; 83540; 83550; 84484; 84703; 85025; 85379; 85652; 86140; 86769; 93005; 93010; 96365; 96367; 96372; 96375; C9113; G0378; J0696; J1100; J1650; J2270; J3490; J7050; J8540; Q0177

== ENCOUNTER 2021-01-04 16:07 | Emergency (ER) | payer OTHER ==
[2021-01-04] MEDS ORDERED: Dexamethasone 4 MG TAB ONE (16:41)
== END 2021-01-04 18:30 | disposition home or self-care (01) ==
LOC: ERS 16:07
DX: J02.9 Acute pharyngitis, unspecified (principal); Z87.891 Personal history of nicotine dependence
CPT/HCPCS: 87081; 87430; 99283; J8540

== ENCOUNTER 2022-01-18 15:47 | Emergency (ER) | payer OTHER | END 2022-01-18 18:44 | disposition home or self-care (01) | LOC: ERS 15:47 | DX: S92.422A Displaced fracture of distal phalanx of left great toe, initial encounter for closed fracture (principal); W22.8XXA Striking against or struck by other objects, initial encounter ==

== ENCOUNTER 2022-02-15 13:20 | Emergency (ER) | payer OTHER ==
[2022-02-15 13:52] LABS: #Eosinphils 0.1 thou/uL (0.0-0.7); #Lymphocytes 1.8 thou/uL (1.20-3.40); #Monocytes 0.3 thou/uL (0.11-0.59); #Neutrophils 4.4 thou/uL (1.40-6.50); %Basophils 0.7 % (0.0-1.0); %Eosinophils 1.1 % (0.0-10.0); %Lymphocytes 27.5 % (21.0-51.0); %Monocytes 4.9 % (0.0-10.0); %Neutrophils 65.8 % (42.0-75.0); Hemoglobin 10.4 g/dL (12.0-16.0); Mean Corpuscular HGB CONC 30.8 g/dL (32.0-36.0); Mean Corpuscular Hemoglobin 22.3 pg (27.0-31.0); Mean Corpuscular Volume 72.4 fL (78.0-98.0); Mean Platelet Volume 10.2 fL (7.4-10.4); Platelet Count 377 thou/uL (130-400); RBC Distribution Width 18.2 % (11.5-14.5); Red Blood Cell (RBC) Count 4.68 mill/uL (4.20-5.40); White Blood Cell (WBC) Count 6.7 thou/uL (4.8-10.8)
[2022-02-15 14:01] LABS: ALT (SGPT) 26 U/L (8-55); AST (SGOT) 18 U/L (5-34); Albumin 4.1 g/dL (3.5-5.0); Alkaline Phosphatase 103 U/L (40-110); Anion Gap 12 mmol/L (10-20); BUN (Urea Nitrogen) 8 mg/dL (7.0-18.7); Bilirubin, Total 0.4 mg/dL (0.2-1.2); Calc. Creatinine Clearance 0 mL/min (70-130); Calcium 8.8 mg/dL (7.8-10.44); Carbon Dioxide 24 mmol/L (22-29); Chloride 106 mmol/L (98-107); Estimated GFR 104; Globulin 3.2 g/dL (2.4-3.5); Glucose 112 mg/dL (70-105); Potassium 3.4 mmol/L (3.5-5.1); Protein, Total 7.3 g/dL (6.0-8.3); Sodium 139 mmol/L (136-145)
[2022-02-15 14:02] LABS: Acetaminophen Less than 10.0 mcg/mL (10.0-30.0); Alcohol Less than 10 mg/dL (Less than 10); CK (CPK) 145 U/L (29-168); Salicylate Less than 8.0 mg/dL (15.0-30.0)
[2022-02-15 14:04] LABS: Anisocytosis SLIGHT = 6-15 cells (100X) (0-5/hpf); Hypochromia SLIGHT = 6-15 cells (100X) (0-5/hpf); MDiff Complete? YES; Microcytosis SLIGHT = 6-15 cells (100X) (0-5/hpf); Ovalocytes SLIGHT = 2-5 cells (100X) (0-1/hpf); Platelet Morphology Comment Appears Adequate; Polychromasia SLIGHT = 2-3 cells (100X) (0-2/hpf)
[2022-02-15 14:12] LABS: BHCG - Serum Negative (NEGATIVE); Pregs Control Background? CLEAR/WHITE (CLR/WHITE); Pregs Control Bar Appear? YES (CONTROL BAR)
[2022-02-15] MEDS ORDERED: Potassium Chloride 20 MEQ TAB ONE (14:34)
[2022-02-15] MEDS ORDERED: Midazolam HCl 2 mg/2 ml Vial ONE (14:52)
[2022-02-15 15:01] LABS: Amphetamine Not Detected (NotDetected); Barbiturates Screen Not Detected (NotDetected); Benzodiazepine Screen Not Detected (NotDetected); Cocaine Metabolite Screen Not Detected (NotDetected); Methadone Not Detected (NotDetected); Methamphetamine Not Detected (NotDetected); Opiate Screen Not Detected (NotDetected); Oxycodone Screen Not Detected (NotDetected); Phencyclidine (PCP) Not Detected (NotDetected); THC/Cannabinoid Screen Not Detected (NotDetected); Tricyclic Screen Not Detected (NotDetected)
[2022-02-15 15:02] LABS: Bacteria/HPF 4+ HPF (None Seen); Bilirubin Negative (Negative); Blood, Urine Trace (Negative); Clarity Clear (Clear); Glucose, Urine (Dipstick) Normal (Negative); Ketone, Urine Negative (Negative); Leukocyte 500 Leu/uL (Negative); Nitrite Negative (Negative); Protein, Urine (Dipstick) Negative (Neg-Trace); RBC/HPF 0-3 HPF (0-3); Squamous Epithelial 0-3 HPF (0-3); Urobilinogen Normal mg/dL (Less than 2)
== END 2022-02-15 16:55 | disposition home or self-care (01) ==
LOC: ERS 13:20
DX: N39.0 Urinary tract infection, site not specified (principal); F32.9 Major depressive disorder, single episode, unspecified
CPT/HCPCS: 36415; 80053; 80306; 80307; 81003; 81015; 82550; 84443; 84703; 85025; 86850; 86900; 86901; 87077; 87086; 87186; 94760; J2250